=== PATIENT | male | born 1930 | race African-American/Black ===

== ENCOUNTER 2017-12-07 21:12 | Inpatient (IN) | payer BC ==
[~2017-12-07] VITALS: Ht 170.2 cm; Wt 75.5 kg
[~2017-12-07 21:12] MED LIST: AMMONIUM LACTA140 GM TP; APRESOLINE50 MG PO; BACTRIM,SEPT1 TABLET PO; BOOST PLUS237 ML PO; FINASTERIDE5 MG PO; FLOMAX0.4 MG PO; FUROSEMIDE20 MG PO; HYDROCHLOROTHIA25 MG PO; IRON325 M1 PO; LISINOPRIL40 MG PO
[2017-12-07 22:31] LABS: HEMATOCRIT 30.8 % (38.0-50.0); HEMOGLOBIN 10.1 G/DL (12.5-16.6); MCH 25.6 PG (29.0-34.0); MCHC 32.8 G/DL (30.0-36.0); PLATELET COUNT 134 K/uL (156-360); RBC DIS.WIDTH-CV 18.5 % (11.8-14.6); RBC DIS.WIDTH-SD 51.2 % (39-53); RED BLOOD COUNT 3.95 M/uL (4.00-5.50); WHITE BLOOD COUNT 3.6 K/uL (4.1-10.2)
[2017-12-07 22:44] LABS: ALBUMIN 3.6 g/dL (3.2-4.8); CHLORIDE 114 mEq/L (99-109); SODIUM 147 mEq/L (136-147)
[2017-12-07 22:46] LABS: GLUCOSE 110 mg/dL (70-99); TOTAL PROTEIN 7.5 g/dL (6.4-8.3)
[2017-12-07 22:48] LABS: TOTAL BILIRUBIN 0.4 mg/dL (0.0-1.0)
[2017-12-07 22:50] LABS: ALKALINE PHOSPHATASE 107 IU/L (3-129); CREATININE 1.6 mg/dL (0.6-1.3); GFR ESTIMATE (CALCULATED) 53 mL/min/ (58.99-99999)
[2017-12-07 22:51] LABS: UREA NITROGEN (BUN) 47 mg/dL (9-23)
[2017-12-07 22:52] LABS: AST (GOT) 61 IU/L (2-34)
[2017-12-07 22:53] LABS: ALT (GPT) 86 IU/L (3-49); CREATINE KINASE 238 IU/L (1-294); TROP-I INTERPRETATION NEGATIVE; TROPONIN-I 0.02 ng/mL (0.0-0.30)
[2017-12-08] MEDS ORDERED: FLOMAX0.4 MG PO (00:40)
[2017-12-08] MEDS ORDERED: APRESOLINE50 MG PO (00:41)
[2017-12-08] MEDS ORDERED: REMERON15 M2 PO (00:42)
[2017-12-08] MEDS ORDERED: AMLODIPINE BES2.5 MG PO (00:42)
[2017-12-08 02:20] LABS: APPEARANCE CLEAR ((CLEAR)); BILIRUBIN NEGATIVE; BLOOD NEGATIVE; COLOR YELLOW ((YELLOW)); GLUCOSE (STRIP) NEGATIVE; KETONES NEGATIVE; LEUKOCYTES NEGATIVE; NITRITE NEGATIVE; PROTEIN (STRIP) NEGATIVE; SPECIFIC GRAVITY 1.015 (1.000-1.030); UCUL ADDED? NO; UROBILINOGEN 0.2 MG/DL (0.2-1.0)
[2017-12-08 03:15] VITALS: BP 138/79
[2017-12-08 08:26] LABS: THYROTROPIN (TSH) 8.4 MIU/L (0.4-5.5)
[2017-12-08 08:30] VITALS: BP 123/71
[2017-12-08 11:17] VITALS: BP 126/63
[2017-12-08 15:48] VITALS: BP 149/68
[2017-12-08 19:05] VITALS: BP 167/83
[2017-12-08 23:45] VITALS: BP 182/85
[2017-12-09 04:20] VITALS: BP 161/77
[2017-12-09 05:56] LABS: HEMATOCRIT 30.4 % (38.0-50.0); HEMOGLOBIN 9.6 G/DL (12.5-16.6); IMM.RETIC FRACTION 13.9 % (3-19); MCH 24.7 PG (29.0-34.0); MCHC 31.6 G/DL (30.0-36.0); MCV 78.4 FL (86-99); NRBC (%) 0.6 /100 WBC (0-0); PLATELET COUNT 117 K/uL (156-360); RBC DIS.WIDTH-CV 18.5 % (11.8-14.6); RBC DIS.WIDTH-SD 51.6 % (39-53); RED BLOOD COUNT 3.88 M/uL (4.00-5.50); RETIC HGB EQUIVALENT 25.1 (28-36); RETICULOCYTE COUNT 1.3 % (0.5-1.8); WHITE BLOOD COUNT 3.4 K/uL (4.1-10.2)
[2017-12-09 07:57] LABS: FREE T3 2.7 pg/mL (2.3-4.2)
[2017-12-09 08:08] LABS: FERRITIN 79 NG/ML (22-322)
[2017-12-09 08:09] LABS: FOLIC ACID (FOLATE) > 22.0 NG/ML (5.0-22.0)
[2017-12-09 08:45] VITALS: BP 168/80
[2017-12-09 08:57] LABS: ALBUMIN 2.9 G/DL (3.2-4.8); ALKALINE PHOSPHATASE 82 IU/L (3-129); ALT (GPT) 51 IU/L (3-49); AST (GOT) 39 IU/L (2-34); CHLORIDE 120 MEQ/L (99-109); CREATININE 1.6 MG/DL (0.6-1.3); GFR ESTIMATE (CALCULATED) 53 mL/min/ (58.99-99999); IRON 94 MCG/DL (35-150); POTASSIUM 4.2 MEQ/L (3.7-5.4); SODIUM 151 MEQ/L (136-147); TOTAL BILIRUBIN 0.6 MG/DL (0.0-1.0); TOTAL PROTEIN 5.7 G/DL (6.4-8.3); TRANSFERRIN (TIBC) 198.8 mg/dL (215-380); TRANSFERRIN SATUR. 47 % (20-55); UREA NITROGEN (BUN) 31 mg/dL (9-23)
[2017-12-09 08:59] LABS: GLUCOSE 51 mg/dL (70-99)
[2017-12-09 12:03] VITALS: BP 192/81
[2017-12-09 17:03] VITALS: BP 155/73
[2017-12-09 19:00] VITALS: BP 161/75
[2017-12-09 23:55] VITALS: BP 168/81
[2017-12-10 03:55] VITALS: BP 169/85
[2017-12-10 06:13] LABS: BASOPHIL (%) 0.4 % (0-1); EOSINOPHIL (%) 2.1 % (0-5); EOSINOPHIL COUNT 0.1 K/uL (0-0.3); IMMATURE GRANULOCYTE (%) 0.6 % (0.0-0.7); MCH 24.7 PG (29.0-34.0); MCHC 31.3 G/DL (30.0-36.0); MONOCYTE (%) 13.2 % (3-12); MONOCYTE COUNT 0.7 K/uL (0-0.8); NEUTROPHIL (%) 64.7 % (45-76); NEUTROPHIL COUNT 3.4 K/uL (1.8-6.4); NRBC (%) 0.6 /100 WBC (0-0); PLATELET COUNT 123 K/uL (156-360); RBC DIS.WIDTH-CV 18.3 % (11.8-14.6); RBC DIS.WIDTH-SD 51.8 % (39-53); RED BLOOD COUNT 4.05 M/uL (4.00-5.50); WHITE BLOOD COUNT 5.2 K/uL (4.1-10.2)
[2017-12-10 09:32] VITALS: BP 198/93
[2017-12-10 09:57] LABS: ALBUMIN 3.1 G/DL (3.2-4.8); ALKALINE PHOSPHATASE 88 IU/L (3-129); ALT (GPT) 48 IU/L (3-49); AST (GOT) 38 IU/L (2-34); CHLORIDE 114 MEQ/L (99-109); CREATININE 1.6 MG/DL (0.6-1.3); GFR ESTIMATE (CALCULATED) 53 mL/min/ (58.99-99999); POTASSIUM 4.1 MEQ/L (3.7-5.4); SODIUM 145 MEQ/L (136-147); TOTAL PROTEIN 6.4 G/DL (6.4-8.3); UREA NITROGEN (BUN) 23 mg/dL (9-23)
[2017-12-10 09:58] LABS: GLUCOSE 111 mg/dL (70-99)
[2017-12-10 12:24] VITALS: BP 156/96
[2017-12-10 16:30] VITALS: BP 180/94
[2017-12-10 20:05] VITALS: BP 159/74
[2017-12-10 23:58] VITALS: BP 153/72
[2017-12-11 04:00] VITALS: BP 147/71
[2017-12-11 04:50] LABS: BASOPHIL (%) 0.1 % (0-1); EOSINOPHIL (%) 2.3 % (0-5); EOSINOPHIL COUNT 0.2 K/uL (0-0.3); HEMATOCRIT 30.8 % (38.0-50.0); HEMOGLOBIN 10.2 G/DL (12.5-16.6); IMMATURE GRANULOCYTE (%) 0.7 % (0.0-0.7); LYMPHOCYTE COUNT 0.9 K/uL (1.0-2.8); MCH 25.2 PG (29.0-34.0); MCHC 33.1 G/DL (30.0-36.0); MCV 76.2 FL (86-99); MONOCYTE (%) 9.2 % (3-12); MONOCYTE COUNT 0.7 K/uL (0-0.8); NEUTROPHIL (%) 75.7 % (45-76); NEUTROPHIL COUNT 5.8 K/uL (1.8-6.4); NRBC (%) 0.4 /100 WBC (0-0); PLATELET COUNT 123 K/uL (156-360); RBC DIS.WIDTH-CV 17.6 % (11.8-14.6); RBC DIS.WIDTH-SD 48.3 % (39-53); RED BLOOD COUNT 4.04 M/uL (4.00-5.50); WHITE BLOOD COUNT 7.7 K/uL (4.1-10.2)
[2017-12-11 05:56] LABS: CHLORIDE 111 mEq/L (99-109); POTASSIUM 3.8 mEq/L (3.7-5.4); SODIUM 142 mEq/L (136-147)
[2017-12-11 06:28] LABS: ALBUMIN 3.3 g/dL (3.2-4.8)
[2017-12-11 06:31] LABS: GLUCOSE 118 mg/dL (70-99)
[2017-12-11 06:34] LABS: ALKALINE PHOSPHATASE 95 IU/L (3-129); CREATININE 1.4 mg/dL (0.6-1.3); GFR ESTIMATE (CALCULATED) > 59 mL/min/ (58.99-99999)
[2017-12-11 06:35] LABS: UREA NITROGEN (BUN) 20 mg/dL (9-23)
[2017-12-11 06:36] LABS: AST (GOT) 37 IU/L (2-34)
[2017-12-11 06:37] LABS: ALT (GPT) 14 IU/L (3-49); TOTAL BILIRUBIN 0.8 mg/dL (0.0-1.0); TOTAL PROTEIN 6.3 g/dL (6.4-8.3)
[2017-12-11 08:25] VITALS: BP 172/84
[2017-12-11 12:19] VITALS: BP 167/83
[2017-12-11 17:00] VITALS: BP 167/87
[2017-12-11 19:33] VITALS: BP 157/73
[2017-12-11 21:30] VITALS: BP 159/77
[2017-12-12] VITALS (7 sets, daily range): BP systolic 98–182; BP diastolic 57–82
[2017-12-12 06:06] LABS: BASOPHIL (%) 0.2 % (0-1); EOSINOPHIL (%) 4.1 % (0-5); EOSINOPHIL COUNT 0.2 K/uL (0-0.3); HEMATOCRIT 31.2 % (38.0-50.0); HEMOGLOBIN 10.1 G/DL (12.5-16.6); IMMATURE GRANULOCYTE (%) 1.2 % (0.0-0.7); LYMPHOCYTE (%) 19.7 % (15-42); MCH 24.9 PG (29.0-34.0); MCHC 32.4 G/DL (30.0-36.0); MCV 76.8 FL (86-99); MONOCYTE COUNT 0.6 K/uL (0-0.8); NEUTROPHIL (%) 62.8 % (45-76); PLATELET COUNT 114 K/uL (156-360); RED BLOOD COUNT 4.06 M/uL (4.00-5.50); WHITE BLOOD COUNT 4.8 K/uL (4.1-10.2)
[2017-12-12 08:53] LABS: ALBUMIN 3.2 G/DL (3.2-4.8); ALKALINE PHOSPHATASE 80 IU/L (3-129); ALT (GPT) 14 IU/L (3-49); AST (GOT) 32 IU/L (2-34); CHLORIDE 112 MEQ/L (99-109); CREATININE 1.2 MG/DL (0.6-1.3); GFR ESTIMATE (CALCULATED) > 59 mL/min/ (58.99-99999); GLUCOSE 111 mg/dL (70-99); POTASSIUM 3.6 MEQ/L (3.7-5.4); SODIUM 143 MEQ/L (136-147); TOTAL PROTEIN 6.1 G/DL (6.4-8.3); UREA NITROGEN (BUN) 14 mg/dL (9-23)
[2017-12-12 09:01] LABS: TOTAL BILIRUBIN 0.6 MG/DL (0.0-1.0)
[2017-12-12 10:19] LABS: HEMOGLOBIN A1c (GLYCOHEMOGLOB) 5.2 % (Below 5.7)
[2017-12-13 06:09] LABS: BASOPHIL (%) 0.2 % (0-1); EOSINOPHIL (%) 3.9 % (0-5); EOSINOPHIL COUNT 0.2 K/uL (0-0.3); HEMATOCRIT 29.3 % (38.0-50.0); HEMOGLOBIN 9.4 G/DL (12.5-16.6); IMMATURE GRANULOCYTE (%) 0.7 % (0.0-0.7); LYMPHOCYTE (%) 14.5 % (15-42); LYMPHOCYTE COUNT 0.8 K/uL (1.0-2.8); MCH 24.8 PG (29.0-34.0); MCHC 32.1 G/DL (30.0-36.0); MCV 77.3 FL (86-99); MONOCYTE COUNT 0.6 K/uL (0-0.8); NEUTROPHIL (%) 69.7 % (45-76); NEUTROPHIL COUNT 3.8 K/uL (1.8-6.4); NRBC (%) 0.4 /100 WBC (0-0); PLATELET COUNT 123 K/uL (156-360); RBC DIS.WIDTH-CV 18.2 % (11.8-14.6); RBC DIS.WIDTH-SD 50.2 % (39-53); RED BLOOD COUNT 3.79 M/uL (4.00-5.50); WHITE BLOOD COUNT 5.4 K/uL (4.1-10.2)
[2017-12-13 07:40] VITALS: BP 120/67
[2017-12-13 07:41] LABS: CHLORIDE 110 MEQ/L (99-109); CREATININE 1.2 MG/DL (0.6-1.3); GFR ESTIMATE (CALCULATED) > 59 mL/min/ (58.99-99999); GLUCOSE 87 mg/dL (70-99); POTASSIUM 3.7 MEQ/L (3.7-5.4); SODIUM 141 MEQ/L (136-147); UREA NITROGEN (BUN) 14 mg/dL (9-23)
[2017-12-13 15:52] VITALS: BP 148/65
[2017-12-13 23:36] VITALS: BP 138/64
[2017-12-14 06:31] LABS: BASOPHIL (%) 0.3 % (0-1); EOSINOPHIL (%) 1.9 % (0-5); EOSINOPHIL COUNT 0.2 K/uL (0-0.3); HEMOGLOBIN 9.4 G/DL (12.5-16.6); IMMATURE GRANULOCYTE (%) 0.5 % (0.0-0.7); LYMPHOCYTE (%) 11.5 % (15-42); LYMPHOCYTE COUNT 0.9 K/uL (1.0-2.8); MCH 25.2 PG (29.0-34.0); MCHC 32.4 G/DL (30.0-36.0); MCV 77.7 FL (86-99); MONOCYTE (%) 6.8 % (3-12); MONOCYTE COUNT 0.5 K/uL (0-0.8); NEUTROPHIL COUNT 6.1 K/uL (1.8-6.4); PLATELET COUNT 131 K/uL (156-360); RBC DIS.WIDTH-CV 18.2 % (11.8-14.6); RBC DIS.WIDTH-SD 49.8 % (39-53); RED BLOOD COUNT 3.73 M/uL (4.00-5.50); WHITE BLOOD COUNT 7.8 K/uL (4.1-10.2)
[2017-12-14 07:15] VITALS: BP 173/80
[2017-12-14 07:32] LABS: CHLORIDE 109 MEQ/L (99-109); CREATININE 1.2 MG/DL (0.6-1.3); GFR ESTIMATE (CALCULATED) > 59 mL/min/ (58.99-99999); GLUCOSE 84 mg/dL (70-99); SODIUM 139 MEQ/L (136-147); UREA NITROGEN (BUN) 13 mg/dL (9-23)
[2017-12-14 10:20] VITALS: BP 157/75
[2017-12-14 17:00] VITALS: BP 164/79
[2017-12-14 23:19] VITALS: BP 153/72
[2017-12-15 07:37] VITALS: BP 170/83
[2017-12-15] MEDS ORDERED: AMOX TR-K400 MG/5 M PO (11:14)
[2017-12-15] MEDS ORDERED: AMLODIPINE BESY10 MG PO (11:15)
[2017-12-15] MEDS ORDERED: ESCITALOPRAM OX10 MG PO (11:15)
[2017-12-15] MEDS ORDERED: CARBIDOPA/LEVO1 EACH PO (11:16)
[2017-12-15] MEDS ORDERED: LEVOTHYROXINE25 MCG PO (11:16)
== END 2017-12-15 15:33 | DRG 871 ==
LOC: EME 21:12 → 4EAST 12-08 00:30 → EDOF 12-08 00:30 → ENRESERV 12-08 00:34 → EDOF 12-08 00:40 → ENRESERV 12-08 00:44 → 4EAST 12-08 02:55 → ENRESERV 12-11 → 5EAST 12-11 20:08 → ENPENDDIS 12-15 → EDPENDDISTM 12-15 15:30 → 5EAST 12-15 15:33
PROVIDERS: Emergency Medicine; Hospitalist; Internal Medicine
DX: A41.9 Sepsis, unspecified organism (principal); J69.0 Pneumonitis due to inhalation of food and vomit; J15.9 Unspecified bacterial pneumonia; J44.0 Chronic obstructive pulmonary disease with (acute) lower respiratory infection; R65.20 Severe sepsis without septic shock; N17.9 Acute kidney failure, unspecified; E86.0 Dehydration; R13.10 Dysphagia, unspecified; E87.0 Hyperosmolality and hypernatremia; E46 Unspecified protein-calorie malnutrition; G20 Parkinson's disease; F03.90 Unspecified dementia, unspecified severity, without behavioral disturbance, psychotic disturbance, mood disturbance, and anxiety; R68.0 Hypothermia, not associated with low environmental temperature; R94.6 Abnormal results of thyroid function studies; I10 Essential (primary) hypertension; E78.5 Hyperlipidemia, unspecified; N40.0 Benign prostatic hyperplasia without lower urinary tract symptoms; Z87.440 Personal history of urinary (tract) infections; Z87.891 Personal history of nicotine dependence
CPT/HCPCS: 70450; 71045; 71250; 74176; 80048; 80053; 81003; 82533 91; 82550; 82607; 82728; 82746; 82948; 83036; 83540; 83605; 84439; 84443; 84466; 84481; 84484; 85025; 85027; 85046; 87040; 92526 GN; 92610 GN; 93005; 95819; 97530 GO; 97530 GP; 99281; 99285; J0360; J1644; J1956; J2543; J3480; J7030; J7050; J7070; S0028